=== PATIENT | female | born 1985 | race Caucasian/White ===

== ENCOUNTER 2017-05-20 10:40 | Day surgery (SDC) | payer BC, MEDICAID, OTHER ==
[2017-05-20] MEDS ORDERED: DICYCLOMINE HCL 10 MG/ML AMPUL IM ONE ×3 (10:47→11:11)
--- NOTE | 2017-05-20 10:57 | ERNOTE ---
Abdominal HPI - Narrative Date of Service: 05/20/17 - General Chief Complaint: Abdominal Pain Time Seen by Provider: 05/20/17 10:42 Source: patient Exam Limitations: no limitations - Immun/Allergies/Home Medications Immunizatons: IMMUNIZATION HX Immunizations Up to Date Yes History of Influenza Vaccine No Allergies/Adverse Reactions: Allergies No Known Allergies Allergy (Unverified 05/20/17 10:47) Home Medications: HOME MEDICATIONS NK [No Home Medication] 05/20/17 [Last Taken Unknown] - History of Present Illness Narrative: Pt. comes in with c/o LUQ and RUQ abd pain for four hours. Pt. denies any NVD, fever, recent illness or injury, SOB, CP, alleviating factors, aggravating factors, despite taking antacids rior to arrival. Pt. states that she occasionally uses ETOH and Marijuana, and smokes a half a pack of cigarettes a day. Pt. states that her LBM was this morning and that is what started the pain. Review of Systems - Review of Systems Constitutional: Present: no symptoms reported. Absent: fever, chills, weakness , fatigue, malaise EYE: Present: no symptoms reported ENT: Present: no symptoms reported Respiratory: Present: no symptoms reported. Absent: shortness of breath, cough , wheezing Cardiology: Present: no symptoms reported. Absent: chest pain, palpitations, edema Gastrointestinal/Abdominal: Present: abdominal pain Genitourinary: Present: no symptoms reported Musculoskeletal: Present: no symptoms reported. Absent: back pain, joint pain Skin: Present: no symptoms reported. Absent: rash, change in color Neurological: Present: no symptoms reported. Absent: headache, dizziness/light- headedness, numbness, tingling Endocrine: Present: no symptoms reported All Other Systems: All systems neg except as marked - Patient's Past Medical History Patient History - Medical: No pertinent hx Patient History - Cardiac/Respiratory: No pertinent hx Patient History - Cancer: No Hx of Cancer Patient History - Surgical Procedures: Patient History - Other: None - Social History Smoking Status: Current every day smoker Have you smoked in the past 12 months: Yes - Immunizations Immunizations Up to Date: Yes History of Influenza Vaccine: No Physical Exam - Physical Exam General Appearance: Present: wd/wn, alert, no apparent distress Head Exam: Present: normal inspection, no evidence of injury Eye Exam: Normal inspection: bilateral Ears, Nose, Throat: Present: normal ENT inspection, normal pharynx Neck: Present: normal inspection, nontender. Absent: lymphadenopathy (R), lymphadenopathy (L) Respiratory: Present: no respiratory distress, normal breath sounds, no accessory muscle use, chest nontender, lungs clear Cardiovascular/Chest: Present: regular rate, rhythm, no murmur, normal peripheral pulses Gastrointestinal/Abdominal: Present: normal bowel sounds, nondistended, soft, no organomegaly, tenderness - LUQ RUQ mild Back Exam: Present: normal inspection Extremity Exam: Present: normal inspection Neurological Exam: Present: alert, oriented, normal mood/affect, no motor/ sensory deficits Skin Exam: Present: normal color, warm/dry. Absent: pallor, skin rash ED Progress - Date and Time Seen: Date and Time: 05/20/17 13:13 Pt. is approriate HCG quant for LMP of 5 weeks ago. 05/20/17 13:[address] Rivero and he will be available at 1630 to take pt. to OR will monitor vital s and HGb and keep pt stable until he is able to arrive if pt. condition declines will call Dr Osborne to perform procedure emergently. 05/20/17 15:40 Dr Rivero here to take pt. to OR - Results and Orders Patient's Lab Results:: I have reviewed the patient's lab results. - Vital Signs Patient's Vital Signs:: I have reviewed the patient's vital signs. Vital Signs: Vital Signs 05/20/17 10:44 Temperature 36.3 C L Pulse Rate 77 Respiratory 12 Rate Blood Pressure 132/74 O2 Sat by Pulse 99 Oximetry - CT/Ultrasound CT/Ultrasound Narrative: US with blood and fluid in the R adnexa No IUP probable ectopic - Progress/Reassessment Chief Complaint: Abdominal Pain Progress:: Unchanged Departure Clinical Impression: Ectopic without intrauterine Qualifiers: Location of ectopic : unspecified location Qualified Code(s): O00.90 - Unspecified ectopic without intrauterine - Departure Disposition: [facility] Condition: Serious
[2017-05-20 10:59] LABS: Hematocrit 34.4 % (37.0-47.0); Hemoglobin 11.8 gm/dL (12.5-16.0); Mean Cell Volume 90.3 fl (78-100); Mean Corpuscular Hgb Conc 34.3 g/dl (32-36); Mean Platelet Volume 10.8 fl (6.0-9.5); Neutrophil # 16.3 K/mm3 (1.3-6.0); Neutrophil % 89.6 % (42-75.0); Platelet Count 240 K/mm3 (150-450); Red Blood Count 3.81 M/mm3 (4.2-5.4); Red Cell Distribution Width 12.5 % (11.5-14.0); White Blood Count 18.1 K/mm3 (4.0-10.5)
[2017-05-20 11:14] LABS: Albumin * 3.6 gm/dl (3.4-5.0); Anion Gap 14.1 mmol/L (6.8-13.8); BUN/Creatinine Ratio 19.4 (9.0-21.6); Bilirubin, Total 0.6 mg/dL (0.0-1.1); Ca. Corrected For Albumin 8.7 mg/dL (8.4-10.2); Calcium * 8.7 mg/dL (7.9-10.9); Carbon Dioxide 24.6 mmol/L (24-32.6); Potassium 3.7 mmol/L (3.4-4.6); Total Protein 6.7 gm/dL (6.2-8.2)
[2017-05-20 11:42] LABS: Urine Bilirubin 1 mg/dl (NEGATIVE); Urine Blood 250 /ul (NEGATIVE); Urine Ketone 5 mg/dL (NEGATIVE); Urine Nitrite Negative (NEGATIVE); Urine Protein 15 mg/dL (NEGATIVE); Urine Specific Gravity >=1.030 SP.GR. (1.005-1.010); Urine Urobilinogen Normal (NORMAL)
[2017-05-20 11:55] LABS: Urine Appearance Cloudy; Urine Bacteria 3+; Urine Color Dark Yellow
[2017-05-20] MEDS ORDERED: NORMAL SALINE 1,000 ML IV ONE ×2 (12:00→12:03)
[2017-05-20] MEDS ORDERED: KETOROLAC TROMETHAMINE 30 MG/ML VIAL IV ONE (12:03)
[2017-05-20 12:08] LABS: Hemoglobin A1C 4.8 % (4.00-6.0)
[2017-05-20] MEDS ORDERED: HYDROmorphone HCL 1 MG/ML DISP.SYRIN IV ONE ×2 (13:39→14:36)
[2017-05-20] MEDS ORDERED: HYDROmorphone HCL 1 MG/ML DISP.SYRIN ONE ×2 (13:41→14:36)
[2017-05-20 14:26] LABS: Hemoglobin 10.8 gm/dL (12.5-16.0); Mean Cell Volume 91.2 fl (78-100); Mean Corpuscular Hemoglobin 30.8 pg (27-31); Mean Corpuscular Hgb Conc 33.8 g/dl (32-36); Mean Platelet Volume 11.3 fl (6.0-9.5); Platelet Count 193 K/mm3 (150-450); Red Blood Count 3.51 M/mm3 (4.2-5.4); Red Cell Distribution Width 12.4 % (11.5-14.0); White Blood Count 15.2 K/mm3 (4.0-10.5)
--- NOTE | 2017-05-20 15:39 | HP ---
Chief Complaint - Chief Complaint Date of Service: 05/20/17 Time of Service: 15:32 Chief Complaint: upper abdominal pain History of Present Illness: 32 yo with LMP 5wks ago presented to [facility] ER complaining of upper abdominal pain. She was diagnosed with ruptured ectopic . She did not know she was . She was not using any form of control. Blood type unknown. - Patient's Past Medical History Patient History - Medical: No pertinent hx Patient History - Cardiac/Respiratory: No pertinent hx Patient History - Cancer: No Hx of Cancer Patient History - Surgical Procedures: Patient History - Other: None LMP (females 10-50): 5 wks ago - Family History Family History:: no untoward family reactions to anesthesia, no familial bleeding tendencies, no family history of clotting disorders, no family history of premature - Social History Smoking Status: Current every day smoker Have you smoked in the past 12 months: Yes - Immunizations Immunizations Up to Date: Yes History of Influenza Vaccine: No Review Of Systems (GEN) - Review of Systems Generalized/Overall Review: Present: Weakness, Fatigue EENTM: Present: No Symptoms Reported Respiratory: Present: No Symptoms Reported Cardiac: Present: No Symptoms Reported Abdominal: Present: Nausea, Abdominal Pain Genitourinary: Present: No Symptoms Reported Musculoskeletal: Present: No Symptoms Reported Neurological: Present: No Symptoms Reported Skin: Present: No Symptoms Reported Endocrine: Present: No Symptoms Reported Immunizations: IMMUNIZATION HX Immunizations Up to Date Yes History of Influenza Vaccine No Allergies/Adverse Reactions: Allergies Allergy/AdvReac Type Severity Reaction Status Date / Time No Known Allergies Allergy Unverified 05/20/17 10:47 Home Medications: HOME MEDICATIONS NK [No Home Medication] 05/20/17 [Last Taken Unknown] Exam - Exam Vital Signs: Vital Signs - Last Taken Temp 36.3 C L 05/20/17 11:20 Pulse 62 05/20/17 15:06 Resp 20 05/20/17 15:06 BP 111/53 05/20/17 15:06 Pulse Ox 100 05/20/17 15:06 Constitutional: Present: Alert, Oriented x3, Cooperative, Well developed, Well nourished, Moderate distress, Middle aged ENT Exam: Present: hearing grossly normal Neck: Present: non-tender Breasts: Present: Exam deferred Respiratory: Present: lungs clear, normal breath sounds, no respiratory distress Cardiovascular/Chest: Present: normal peripheral pulses, regular rate, rhythm, no edema Abdomen: Present: soft, tender, rebound tenderness /Rectal: Present: Exam deferred Extremity: Present: non-tender, no pedal edema, no calf tenderness Skin Exam: Present: normal color, warm/dry, no cyanosis Neurologic: Present: normal mood/affect, oriented x 3 Appearance: Present: appropriate appearance, appropriate insight Eye contact: Present: cooperative, good eye contact Thoughts: Present: normal thought pattern Diagnostic Studies: Abnormal Lab Results 05/20/17 05/20/17 05/20/17 Range/Units 10:45 10:46 10:46 WBC 18.1 H (4.0-10.5) K/mm3 RBC 3.81 L (4.2-5.4) M/mm3 Hgb 11.8 L (12.5-16.0) gm/dL Hct 34.4 L (37.0-47.0) % MPV 10.8 H (6.0-9.5) fl Immature Gran % (Auto) 0.70 H (0.001-0.429) % Immature Gran # (Auto) 0.13 H (0.000-0.0310) K/mm3 Neutrophils % 89.6 H (42-75.0) % Lymphocytes % 6.0 L (20-51) % Neutrophils # 16.3 H (1.3-6.0) K/mm3 Lymphocytes # 1.1 L (1.5-3.5) k/mm3 Anion Gap 14.1 H (6.8-13.8) mmol/L Random Glucose 152 H (70-110) mg/dL ALT 18 L (19-67) U/L Alkaline Phosphatase 41 L (50-170) U/L Lipase 58 L (73-393) U/L Urine Protein (NEGATIVE) mg/dL Urine Glucose (UA) (NEGATIVE) mg/dL Urine Blood (NEGATIVE) /ul Urine Bilirubin (NEGATIVE) mg/dl Ur Leukocyte Esterase (NEGATIVE) /ul Urine RBC (0-5) /hpf Urine WBC (0-5) /hpf Ur Epithelial Cells (0-5) /hpf Urine Bacteria (NONE) Urine HCG, Qual (NEGATIVE) Maternal Serum HCG 51996 H (0-6) mIU/mL 05/20/17 05/20/17 05/20/17 Range/Units 10:46 11:38 14:18 WBC 15.2 H (4.0-10.5) K/mm3 RBC 3.51 L (4.2-5.4) M/mm3 Hgb 10.8 L (12.5-16.0) gm/dL Hct 32.0 L (37.0-47.0) % MPV 11.3 H (6.0-9.5) fl Immature Gran % (Auto) (0.001-0.429) % Immature Gran # (Auto) (0.000-0.0310) K/mm3 Neutrophils % (42-75.0) % Lymphocytes % (20-51) % Neutrophils # (1.3-6.0) K/mm3 Lymphocytes # (1.5-3.5) k/mm3 Anion Gap (6.8-13.8) mmol/L Random Glucose (70-110) mg/dL ALT (19-67) U/L Alkaline Phosphatase (50-170) U/L Lipase (73-393) U/L Urine Protein 15 H (NEGATIVE) mg/dL Urine Glucose (UA) 250 H (NEGATIVE) mg/dL Urine Blood 250 H (NEGATIVE) /ul Urine Bilirubin 1 H (NEGATIVE) mg/dl Ur Leukocyte Esterase 100 H (NEGATIVE) /ul Urine RBC 10-25 H (0-5) /hpf Urine WBC 10-25 H (0-5) /hpf Ur Epithelial Cells 5-10 H (0-5) /hpf Urine Bacteria 3+ H (NONE) Urine HCG, Qual Positive H (NEGATIVE) Maternal Serum HCG (0-6) mIU/mL Laboratory Results WBC 15.2 K/mm3 (4.0-10.5) H 05/20/17 14:18 RBC 3.51 M/mm3 (4.2-5.4) L 05/20/17 14:18 Hgb 10.8 gm/dL (12.5-16.0) L 05/20/17 14:18 Hct 32.0 % (37.0-47.0) L 05/20/17 14:18 MCV 91.2 fl (78-100) 05/20/17 14:18 MCH 30.8 pg (27-31) 05/20/17 14:18 MCHC 33.8 g/dl (32-36) 05/20/17 14:18 RDW 12.4 % (11.5-14.0) 05/20/17 14:18 Plt Count 193 K/mm3 (150-450) 05/20/17 14:18 MPV 11.3 fl (6.0-9.5) H 05/20/17 14:18 Immature Gran % (Auto) 0.70 % (0.001-0.429) H 05/20/17 10:46 Immature Gran # (Auto) 0.13 K/mm3 (0.000-0.0310) H 05/20/17 10:46 Neutrophils % 89.6 % (42-75.0) H 05/20/17 10:46 Lymphocytes % 6.0 % (20-51) L 05/20/17 10:46 Monocytes % 3.4 % (0.0-9) 05/20/17 10:46 Eosinophils % 0.1 % (0.0-3.0) 05/20/17 10:46 Basophils % 0.2 % (0.0-1.0) 05/20/17 10:46 Nucleated RBC % 0.0 k/mm3 (0-1) 05/20/17 10:46 Neutrophils # 16.3 K/mm3 (1.3-6.0) H 05/20/17 10:46 Lymphocytes # 1.1 k/mm3 (1.5-3.5) L 05/20/17 10:46 Monocytes # 0.6 k/mm3 (0.0-1.0) 05/20/17 10:46 Eosinophils # 0.0 k/mm3 (0.0-0.7) 05/20/17 10:46 Absolute Basophils 0.0 k/mm3 (0.0-0.1) 05/20/17 10:46 Sodium 135 mmol/L (132-142) 05/20/17 10:46 Plasma Sodium 136 mmol/L (130-142) 05/20/17 10:46 Potassium 3.7 mmol/L (3.4-4.6) 05/20/17 10:46 Chloride 100 mmol/L (97-106) 05/20/17 10:46 Carbon Dioxide 24.6 mmol/L (24-32.6) 05/20/17 10:46 Anion Gap 14.1 mmol/L (6.8-13.8) H 05/20/17 10:46 BUN 13 mg/dL (3-23) 05/20/17 10:46 Creatinine 0.67 mg/dL (0.4-1.4) 05/20/17 10:46 Est GFR (Non-Af Amer) 107 mL/min (60-130) 05/20/17 10:46 BUN/Creatinine Ratio 19.4 (9.0-21.6) 05/20/17 10:46 Random Glucose 152 mg/dL (70-110) H 05/20/17 10:46 Mean Blood Glucose 74 mg/dL 05/20/17 11:53 Hemoglobin A1c 4.8 % (4.00-6.0) 05/20/17 11:53 Calcium 8.7 mg/dL (7.9-10.9) 05/20/17 10:46 Calcium Adj for Albumin 8.7 mg/dL (8.4-10.2) 05/20/17 10:46 Total Bilirubin 0.6 mg/dL (0.0-1.1) 05/20/17 10:46 AST 12 U/L (0-48) 05/20/17 10:46 ALT 18 U/L (19-67) L 05/20/17 10:46 Alkaline Phosphatase 41 U/L (50-170) L 05/20/17 10:46 Total Protein 6.7 gm/dL (6.2-8.2) 05/20/17 10:46 Albumin 3.6 gm/dl (3.4-5.0) 05/20/17 10:46 Amylase 36 U/L (25-115) 05/20/17 10:46 Lipase 58 U/L (73-393) L 05/20/17 10:46 Urine Color Dark yellow 05/20/17 11:38 Urine Appearance Cloudy 05/20/17 11:38 Urine pH 6.0 pH (5.0-7.0) 05/20/17 11:38 Ur Specific [place] >=1.030 SP.GR. (1.005-1.010) 05/20/17 11:38 Urine Protein 15 mg/dL (NEGATIVE) H 05/20/17 11:38 Urine Glucose (UA) 250 mg/dL (NEGATIVE) H 05/20/17 11:38 Urine Ketones 5 mg/dL (NEGATIVE) 05/20/17 11:38 Urine Blood 250 /ul (NEGATIVE) H 05/20/17 11:38 Urine Nitrate Negative (NEGATIVE) 05/20/17 11:38 Urine Bilirubin 1 mg/dl (NEGATIVE) H 05/20/17 11:38 Urine Ictotest Negative (NEGATIVE) 05/20/17 11:38 Prot Sulfosalicylic Acd Negative mg/dL (0) 05/20/17 11:38 Urine Urobilinogen Normal EU/dl (NORMAL) 05/20/17 11:38 Ur Leukocyte Esterase 100 /ul (NEGATIVE) H 05/20/17 11:38 Urine RBC 10-25 /hpf (0-5) H 05/20/17 11:38 Urine WBC 10-25 /hpf (0-5) H 05/20/17 11:38 Ur Epithelial Cells 5-10 /hpf (0-5) H 05/20/17 11:38 Urine Bacteria 3+ (NONE) H 05/20/17 11:38 Urine Culture Comments Culture to follow 05/20/17 11:38 Urine HCG, Qual Positive (NEGATIVE) H 05/20/17 10:46 Maternal Serum HCG 28061 mIU/mL (0-6) H 05/20/17 10:45 Assessment/Plan - Narrative Narrative: Ruptured ectopic . R/b/a to diagnostic laparoscopy with excision of ectopic , possible salpingoophorectomy, possible lysis of adhesions discussed with patient. All questions answered. Will proceed with above procedures.
[2017-05-20] MEDS ORDERED: RINGER'S SOLUTION,LACTATED 1,000 ML IV ONE (15:45)
[2017-05-20] MEDS ORDERED: LIDOCAINE HCL/EPINEPHRINE 50 ML VIAL IJ ONE (16:10)
--- NOTE | 2017-05-20 17:37 | OR ---
Operative Report - Dictated Report Narrative: DATE OF PROCEDURE: 05/20/2017 INDICATION: 32 year old female with ruptured ectopic PREOPERATIVE DIAGNOSIS: Ruptured ectopic POSTOPERATIVE DIAGNOSIS: Same OPERATION: Diagnostic laparoscopy, Laparoscopic right salpingectomy, Excision of ectopic SURGEON: Kedar Rivero D.O. [employer] DRIVER: OR staff ANESTHESIA: General ESTIMATED BLOOD LOSS: Minimal FLUID REPLACEMENT: 800 mL URINE OUTPUT: 975 mL FINDINGS: Hemoperitoneum with blood extending along the right colonic gutter above the liver to the diaphragm - 1750 mL of blood, ectopic and right distal fallopian tube. Normal-appearing ovaries, left fallopian tube, uterus, and anterior & posterior cul-de-sac SPECIMEN(S): Right fallopian tube with ectopic DRAINS: Thompson catheter to gravity drainage intraoperatively TECHNIQUE: The patient was taken to the operating room and placed in dorsal lithotomy position after adequate general anesthesia was obtained. SCDs were placed prior to induction of anesthesia and remained on throughout the case and postop recovery. The anterior lip of the cervix was grasped with a long Allis clamp and a uterine manipulator was inserted into the cervical canal and attached to the Allis clamps as a means to manipulate the uterus. Thompson catheter was inserted in the bladder to gravity drainage. Gloves were changed and attention was turned to the abdomen where the umbilicus and suprapubic region were injected with a 1% lidocaine with epinephrine solution. A scalpel was used to score the skin and a 12 mm non-bladed trocar was inserted via direct technique under direct visualization through the umbilical incision. Pneumoperitoneum was created with CO2 gas. A 5 mm non-bladed trocar was inserted in a similar fashion in the left lower quadrant and suprapubically. Through these 3 ports the surgery was carried out with findings as noted above. The right fallopian tube was identified and followed out to the fimbriated end. A laparoscopic grasper was clamped across the tube to control bleeding. The fallopian tube was coagulated with the Kleppinger's approximately 2 cm from the cornual region and along the mesosalpinx. The tube was then excised with laparoscopic scissors and removed through the 12 mm port in an Endobag at the end of the case. 3 L of warm saline was used to irrigate the abdomen and pelvis. Excellent hemostasis was noted and all visible clots were removed. The CO2 gas was removed from the abdominal cavity. Trochars were removed under direct visualization. The 12 mm incision was closed with a single interrupted 0 Vicryl suture. The skin of all incisions was closed with 4-0 Monocryl and Dermabond. Instruments were removed from the cervix and vagina. The Thompson catheter was removed. Sponge, lap, instrument, and needle count were correct x 2. DISPOSITION: The patient was awakened and transferred to post anesthesia care unit in good condition.
[2017-05-20 20:02] VITALS: BP 142/50
== END 2017-05-20 15:42 | disposition home or self-care (01) ==
LOC: ER 10:40 → AMB 15:41
PROVIDERS: ATTEND Obstetrics & Gynecology
PROC: 0UT54ZZ Resection of Right Fallopian Tube, Percutaneous Endoscopic Approach (ICD-10-PCS; 2017-05-20)
PROC: 10T24ZZ Resection of Products of Conception, Ectopic, Percutaneous Endoscopic Approach (ICD-10-PCS; principal; 2017-05-20 15:30)
DX: O00.101 Right tubal pregnancy without intrauterine pregnancy (principal); F17.200 Nicotine dependence, unspecified, uncomplicated; Z68.29 Body mass index [BMI] 29.0-29.9, adult; R10.13 Epigastric pain